=== PATIENT | female | born 1995 | race African-American/Black ===

== ENCOUNTER 2016-10-31 16:51 | Emergency (ER) | payer OTHER ==
[~2016-10-31] VITALS: Ht 180.3 cm; Wt 97.1 kg
[2016-10-31 17:00] VITALS: BP 130/74
--- NOTE | 2016-10-31 18:09 | ED UPPER/LOWER EXTREMITY COMPL ---
History of Present Illness General Chief Complaint: Lower Extremity Problems Stated Complaint: KNEE PAIN Source: patient, old records Exam Limitations: no limitations Vital Signs & Intake/Output Vital Signs & Intake/Output Vital Signs Date Time Temp Pulse Resp B/P Pulse O2 O2 Flow FiO2 Ox Delivery Rate 10/31 1700 98.1 90 20 130/74 99 Room Air Allergies Coded Allergies: No Known Allergies (10/31/16) Triage Note: TRIAGE: PT TO ER C/C R KNEE PAIN, ONSET LAST NIGHT, CONTSTANT SINCE ONSET. HAS BEEN ICING AND ELEVATING THE KNEE WITH ONLY SOME IMPROVEMENT IN SWELLING, DENIES ANY IMPROVEMENT IN PAIN. DENIES ANY INJURY. STATES HAS HAD INTERMITTENT KNEE PAIN X FEW MONTHS, DOCTOR SAID IT MIGHT BE R/T RUNNING AND WORKING OUT. STATES SHE STOPPED THE RUNNING AND WORKING OUT. ONSET OF PAIN YESTERDAY AFTER BENDING DOWN TO PICK SOMETHING UP. PAIN IS WORSE WHEN BENDING. REFUSES OFFERED PAIN MEDS AT TRIAGE. Triage Nurses Notes Reviewed? yes Onset: Abrupt Duration: day(s): (2), constant Timing: recent history Severity: mild, moderate Severity Numbers: 5 Pain/Injury Location: Right: Knee. Method of Injury: s/p bending over Modifying Factors: Improves With: rest. Worsens With: movement. Associated Symptoms: none : No Patient currently breastfeeds: No HPI: 21-year-old female presents emergency room for evaluation complaining of medial and lateral right knee pain since last night when she bent over and began to have this pain. She states is been constant since however she is not taken anything for her symptoms mild to moderate and aching nonradiating. There was no fall or other trauma she denies any swelling no hip foot or ankle pain no numbness or tingling. She states she has had problems with this knee over the past several months at which time she had an x-ray performed and was advised by her primary care physician to stop running. She denies any redness warmth over her knee, she denies any swelling to the rest of her leg no fever no chills (KENN AGUILAR) Past History Travel History Traveled to [place] past 21 day No Medical History Any Pertinent Medical History? 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 No (KENN AGUILAR) Review of Systems Review of Systems Constitutional: Reports: see HPI. All Other Systems: Reviewed and Negative Comments Review of systems: See HPI, All other systems negative. Constitutional, no chills no fever, no malaise HEENT: No visual changes no sore throat no congestion Cardiovascular: No chest pain , no palpitation Skin, no rashes, no change in skin Respiratory: No dyspnea no cough no sputum GI: No nausea no vomiting, no diarrhea, no bloating/constipation : No dysuria Muscle skeletal: joint pain, no joint swelling, no back pain, no neck pain, Neurologic: No numbness no confusion, no headache Psych: No stress Heme/endocrine: No bruising no bleeding Immunology: No lymphadenopathy, (KENN AGUILAR) Physical Exam Physical Exam General Appearance: well developed/nourished, no apparent distress, alert, awake Comments: Well-developed well-nourished patient in no apparent distress. HEENT: Atraumatic, extraocular motion intact Neck: Supple, FROM Back: FROM Cardiovascular: Regular rate and rhythms no murmurs Respiratory: No respiratory distress. Patient speaking in full complete sentences. Breath sounds clear to auscultation bilaterally: NO W/R/R Upper Extremities: full range of motion Hip/Pelvis: Atraumatic/Stable. FROM. No pain with pelvic compression Knee: Atraumatic/stable. Tenderness to palpation over the medial and lateral aspect of the right knee, FROM. No joint swelling, no effusion. No laxity. Negative baltazar/anterior drawer test. No pain with ROM Leg: Atraumatic. Nontender. No edema, 5 out of 5 strength in the lower extremity, normal dorsiflexion of great toe bilaterally, gross sensation is intact, patellar tendon reflex 2+ bilaterally. Ankle/Foot: Atraumatic/stable. Skin intact. FROM. No swelling, no effusion. No laxity on exam Pulses: Normal/equal DP/PT pulses bilaterally. Brisk cap refill Neuro: Alert and oriented x3 Skin: Warm & dry;No appreciable rash on exposed skin Psych: Mood affect normal, normal memory normal judgment. (KENN AGUILAR) Progress Differential Diagnosis: compartment syndrome, contusion, dislocation, fracture, sprain, tendon injury Plan of Care: Patient is declining x-ray when offered stating she had one a few months ago when she initially had the pain I discussed with her given her new symptoms began last night I cannot officially rule out. The patient is declining x-ray I discussed with her the possibility providing her with a leg immobilizer which she is also declining stating she has a knee brace at home she is declining anything for pain offered I discussed with her need for close follow-up with her primary care physician as well as orthopedist. Patient feels comfortable with this plan I advised for ice, return anytime sooner for symptoms worsen or she changes her mind, I answered all of her question she feels comfortable with this plan (KENN AGUILAR) Departure Departure Time of Disposition: 1814 Disposition: HOME OR SELF CARE Condition: Stable Clinical Impression Primary Impression: Knee sprain Referrals: BRIGITTE ROWLEY,PJ HOWARD MD,SHANE (PCP/Family) Additional Instructions: Rest ice Tylenol Motrin every 4-6 hours keep leg elevated, continue to wear your brace follow-up with your primary care physician or orthopedist Dr. laws symptoms persist Departure Forms: Customer Survey General Discharge Information (KENN AGUILAR) PA/DIRECTOR OUTCOMES Co-Sign Statement Statement: ED Attending supervision documentation- [] I saw and evaluated the patient. I have also reviewed all the pertinent lab results and diagnostic results. I agree with the findings and the plan of care as documented in the PA's/DIRECTOR OUTCOMES's documentation. [X] I have reviewed the ED Record and agree with the PA's/DIRECTOR OUTCOMES's documentation. [] Additions or exceptions (if any) to the PAs/DIRECTOR OUTCOMES's note and plan are summarized below: [] (NISHA ROWLEY,BASIM)
== END 2016-10-31 18:24 ==
LOC: ERH 16:51 → EDBD 16:51 → ERH 17:09
DX: S83.91XA Sprain of unspecified site of right knee, initial encounter (principal)
CPT/HCPCS: 99282

== ENCOUNTER 2018-04-20 07:58 | Emergency (ER) | payer OTHER ==
[~2018-04-20] VITALS: Ht 177.8 cm; Wt 120.7 kg
[~2018-04-20 07:58] MED LIST: PROAIR HFA8.5 GM INH; TRAMADOL HCL50 M1 PO; VITAMIN D250000 UNIT PO
[2018-04-20 08:25] LABS: ABSOLUTE BASOPHIL COUNT 0 /CUMM (0.0-0.2); ABSOLUTE EOSINOPHIL COUNT 0.2 /CUMM (0.0-0.7); ABSOLUTE GRANULOCYTE CT 3.5 /CUMM (1.4-6.5); ABSOLUTE LYMPH COUNT 2.8 /CUMM (1.2-3.4); ABSOLUTE MONOCYTE COUNT 0.5 /CUMM (0.10-0.60); BASOPHIL % 0.7 % (0.0-2.0); EOSINOPHIL % 2.2 % (0-5); GRANULOCYTE % 49.4 % (42.2-75.2); HEMATOCRIT 32.4 % (37-47); MEAN CORPUSCULAR HGB 23.8 PG (27.0-31.0); MEAN CORPUSCULAR HGB CONC 32.4 G/DL (33.0-37.0); MEAN CORPUSCULAR VOLUME 73.6 FL (81.0-99.0); PLATELET COUNT 322 /CUMM (130-400); RBC DISTRIBUTION WIDTH 19.4 % (11.5-14.5)
--- NOTE | 2018-04-20 11:32 | ED GI/GU/ABDOMINAL COMPLAINT ---
History of Present Illness General Chief Complaint: General Adult Stated Complaint: C/O OF CRAMPING AND NAUSEA ? 5 WEEKS PREGANT Source: patient Exam Limitations: no limitations Vital Signs & Intake/Output Vital Signs & Intake/Output Vital Signs Date Time Temp Pulse Resp B/P B/P Pulse O2 O2 Flow FiO2 Mean Ox Delivery Rate 04/20 1347 76 122/64 04/20 1141 98.4 76 18 124/88 98 Room Air 04/20 0939 99.0 85 22 124/76 100 Room Air 04/20 0806 98.6 88 18 125/73 98 Room Air Allergies Coded Allergies: No Known Allergies (10/31/16) Reconcile Medications Albuterol Sulfate (Proair Hfa) 90 MCG HFA.AER.AD 2 PUF INH Q4-6 PRN PRN SHORTNESS OF BREATH (Reported) Ergocalciferol (Vitamin D2) (Vitamin D2) 50,000 UNIT CAPSULE 1 CAP PO QW VITAMIN SUPPORT (Reported) Nitrofurantoin Monohyd/M-Cryst (Macrobid 100 MG Capsule) 100 MG CAPSULE 1 CAP PO BID uti with food Tramadol HCl 50 MG TABLET 1 TAB PO BIDP PRN PAIN Triage Note: 22 YO FEMALE TO [facility] FOR EVAL OF L SIDED ABD CRAMPING AND +NAUSEA. PT IS 5 WEEKS . PT REPORTS SHE HAD THE SAME PAIN PRIOR TO , REPORTS HAS BEEN OBGYN WHO "COULDNT FIGURE IT OUT, AND THEN I GOT " REPORTS LMP 03/10/18. STATES HAS NOT SEEN HER OBGYN SINCE FINDING OUT SHE IS . OBGYN IS DR ALLISON. [facility]. Triage Nurses Notes Reviewed? yes ? Y Is pt currently ? No Onset: Abrupt Duration: day(s):, constant Timing: recent history Quality/Severity: cramping Radiation: no radiation Activities at Onset: none No Modifying Factors: none HPI: 22-year-old female approximately 5 weeks based on her last menstrual period comes into the emergency room with lower abdominal cramping pain. Denies any vaginal bleeding or discharge. She reports that she was experiencing some cramping prior to before she found out she was . He denies any vomiting. Some associated nausea. Previous appendectomy denies any other associated symptoms. She comes in for further evaluation. (Franko Savage) Past History Travel History Traveled to [place] past 21 day No Medical History Any Pertinent Medical History? 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 No (Franko Savage) Review of Systems Review of Systems Constitutional: Reports: no symptoms. EENTM: Reports: no symptoms. Respiratory: Reports: no symptoms. Cardiovascular: Reports: no symptoms. GI: Reports: see HPI. Genitourinary: Reports: see HPI. Musculoskeletal: Reports: no symptoms. Skin: Reports: no symptoms. Neurological/Psychological: Reports: no symptoms. Hematologic/Endocrine: Reports: no symptoms. Immunologic/Allergic: Reports: no symptoms. All Other Systems: Reviewed and Negative (Franko Savage) Physical Exam Physical Exam General Appearance: well developed/nourished, alert, awake Head: atraumatic Eyes: Bilateral: normal appearance, EOMI. Ears, Nose, Throat, Mouth: hearing grossly normal, moist mucous membrane Neck: normal inspection, full range of motion Respiratory: no respiratory distress Gastrointestinal: soft, non-tender Back: normal inspection Extremities: normal range of motion Neurologic/Psych: awake, alert, oriented x 3 Core Measures ACS in differential dx? No Sepsis Present: No Sepsis Focused Exam Completed? No (Franko Savage) Progress Differential Diagnosis: ectopic , ovarian cyst, ovarian torsion, threatened AB, UTI/pyelo Plan of Care: Orders Procedure Date/time Status Add-on Test (ER Only) 04/20 08 Active URINALYSIS 04/20 0857 Complete LIPASE 04/20 0813 Complete HUMAN BETA HCG TITRE 04/20 0812 Complete COMPREHENSIVE METABOLIC PANEL 04/20 08 Complete CBC WITHOUT DIFFERENTIAL 04/20 0812 Complete Laboratory Tests 04/20/18 1155: Urinalysis MANY H, Urine Color STRAW, Urine Clarity CLDY H, Urine pH 8.0, Ur Specific [place] 1.020, Urine Protein NEG, Urine Ketones NEG, Urine Nitrite NEG, Urine Bilirubin NEG, Urine Urobilinogen 1.0, Ur Leukocyte Esterase SMALL H, Ur Microscopic SEDIMENT EXAMINED, Urine RBC RARE, Urine WBC 1-3 H, Ur Epithelial Cells MOD H, Urine Mucus RARE, Urine Hemoglobin NEG, Urine Glucose NEG 04/20/18 0857: Lipase Cancelled 04/20/18 0813: Anion Gap 10, Estimated GFR > 60, BUN/Creatinine Ratio 12.9, Glucose 111 H, Calcium 9.0, Total Bilirubin 0.4, AST 20, ALT 31, Alkaline Phosphatase 65, Total Protein 6.5, Albumin 3.5, Globulin 3.0, Albumin/Globulin Ratio 1.2, Lipase 104, Beta HCG, Quant 6917.6, CBC w Diff NO MAN DIFF REQ, RBC 4.40, MCV 73.6 L, MCH 23.8 L, MCHC 32.4 L, RDW 19.4 H, MPV 9.0, Gran % 49.4, Lymphocytes % 40.6, Monocytes % 7.1, Eosinophils % 2.2, Basophils % 0.7, Absolute Granulocytes 3.5, Absolute Lymphocytes 2.8, Absolute Monocytes 0.5, Absolute Eosinophils 0.2, Absolute Basophils 0 Diagnostic Imaging: Viewed by Me: Ultrasound. Discussed w/RAD: Ultrasound. Radiology Impression: PATIENT: JULIA GARNER PRESENT AGE: 22 PATIENT ACCOUNT NO: [id number] : 93 LOCATION: [facility] ORDERING PHYSICIAN: Ronaldo SALCIDO SERVICE DATE: 04/20/18 EXAM TYPE: US - US TRANSVAG EXAMINATION: US PELVIS TRANSVAGINAL CLINICAL INFORMATION: Nausea/vomiting and lower abdominal pain x 5 weeks. COMPARISON: None TECHNIQUE: Transabdominal and transvaginal ultrasound pelvis is performed. FINDINGS: The uterus measures 9.2 cm in length, 5.9 cm in AP and 5.6 cm in transverse dimension. There is a intrauterine just artifact seen without any visible pole or yolk sac. Right ovary measures 3.2 x 1.5 x 2.9 cm and appears unremarkable. Left ovary measures 4.4 x 2.1 x 2.8 cm. There is anechoic cyst measuring 1.7 x 1.1 x 1.4 cm. It is likely corpus luteal cyst. There is no free fluid in the cul-de-sac. IMPRESSION: Intrauterine gestational sac seen but no pole identified at this time. Small corpus luteal cyst left ovary. Right ovary is normal. DICTATED BY: Danilo Ambriz MD DATE/TIME DICTATED:04/20/181327 LEAF TIER:RADHA DATE/TIME TRANSCRIBED:04/20/181327 CONFIDENTIAL, DO NOT COPY WITHOUT APPROPRIATE AUTHORIZATION. <Electronically signed in Other Vendor System> SIGNED BY: Danilo Ambriz MD 04/20/18 1339 Initial ED EKG: none Comments: 04/20/2018 2:23:02 PM Patient clinically looks well. Patient is in no apparent distress. Patient is nontoxic-appearing. No acute abdomen. Follow-up with [facility] doctor next week. Return if any other concerns worsening symptoms. Patient understands and agrees with plan of care. (Reed SALCIDO,Franko) Departure Departure Disposition: HOME OR SELF CARE Condition: Stable Clinical Impression Primary Impression: Abdominal pain during intrauterine Referrals: Jose Alberto ROWLEY,Cm Head (PCP/Family) Additional Instructions: Follow-up with your [facility] doctor and opto mechanical technician. Return if any other concerns worsening symptoms. Please go over all results of today's visit with your primary care doctor. Contact your primary care doctor to let them know you were here in the emergency room. There may be nonspecific findings which may not be related to your visit today here in the emergency room but may require further evaluation and chronic monitoring by your primary care doctor. If you had a laceration today the chance of foreign body always remains. You should follow-up with your primary care doctor for recheck in 3-5 days for a wound check. If you had an x-ray done there is a chance that a fracture could have been missed on initial read and you should follow-up with your primary care doctor for repeat x-rays if symptoms persist. If your blood pressure was elevated here in the emergency room please have rechecked by [facility] primary care doctor within the next 48. If you were prescribed a narcotic here in the emergency room or any type of controlled substances you're not allowed to drive while taking this medication or operate any type of heavy machinery. Narcotics can make you feel lightheaded dizziness nausea and can cause constipation. You may need to sweet pickle maker a stool softener. Thank you for choosing [facility] emergency room. Please return to the emergency room immediately if you have any other concerns worsening of symptoms. Departure Forms: Customer Survey General Discharge Information Prescriptions: Current Visit Scripts Nitrofurantoin Monohyd/M-Cryst (Macrobid 100 MG Capsule) 1 CAP PO BID #14 CAP with food (Franko Savage) PA/CONSERVATION EDUCATOR Co-Sign Statement Statement: ED Attending supervision documentation- [X] I saw and evaluated the patient. I have also reviewed all the pertinent lab results and diagnostic results. I agree with the findings and the plan of care as documented in the PA's/CONSERVATION EDUCATOR's documentation. [] I have reviewed the ED Record and agree with the PA's/CONSERVATION EDUCATOR's documentation. [] Additions or exceptions (if any) to the PAs/CONSERVATION EDUCATOR's note and plan are summarized below: [] 22 yo female with 5 weeks by LMP, comes in with lower abdominal cramping. being exam. no vaginal bleeding reported. Very soft benign abdomen. Patient refusing a vaginal exam at this time. Ultrasound confirms an intrauterine . Labs and urinalysis are benign. The patient has an OB to follow up with No ectopic seen. Plan will be for outpatient follow-up. The patient reports that her abdominal discomfort is actually chronic and present months before she was . Because of this history we will send her to GI for evaluation. Though no imaging indicated because the patient is and this is not acute. (Mendoza ROWLEY,[facility])
--- NOTE | 2018-04-20 13:39 | ULTRASOUND REPORT ---
EXAMINATION: US PELVIS TRANSVAGINAL CLINICAL INFORMATION: Nausea/vomiting and lower abdominal pain x 5 weeks. COMPARISON: None TECHNIQUE: Transabdominal and transvaginal ultrasound pelvis is performed. FINDINGS: The uterus measures 9.2 cm in length, 5.9 cm in AP and 5.6 cm in transverse dimension. There is a intrauterine just artifact seen without any visible pole or yolk sac. Right ovary measures 3.2 x 1.5 x 2.9 cm and appears unremarkable. Left ovary measures 4.4 x 2.1 x 2.8 cm. There is anechoic cyst measuring 1.7 x 1.1 x 1.4 cm. It is likely corpus luteal cyst. There is no free fluid in the cul-de-sac. IMPRESSION: Intrauterine gestational sac seen but no pole identified at this time. Small corpus luteal cyst left ovary. Right ovary is normal.
[2018-04-20] MEDS ORDERED: MACROBID 100 M100 MG PO (13:45)
[2018-04-20 13:47] VITALS: BP 122/64
== END 2018-04-20 13:48 ==
LOC: ERH 07:58
PROVIDERS: Emergency Medicine
DX: O99.89 Other specified diseases and conditions complicating pregnancy, childbirth and the puerperium (principal); R10.9 Unspecified abdominal pain; Z3A.01 Less than 8 weeks gestation of pregnancy
CPT/HCPCS: 76817; 81001